=== PATIENT | female | born 1980 | race Caucasian/White ===

== ENCOUNTER 2021-03-08 10:08 | Emergency (ER) | payer BC, OTHER ==
[~2021-03-08] VITALS: Ht 172.7 cm; Wt 96.3 kg
[2021-03-08 10:31] VITALS: BP 111/71
--- NOTE | 2021-03-08 10:37 | NUR ---
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
[2021-03-08 11:04] LABS: BASOPHILS % (AUTO) 1 % (0-1); EOSINOPHILS % (AUTO) 1 % (1-7); LYMPHOCYTES % (AUTO) 21 % (22-44); MEAN CORPUSCULAR HEMOGLOBIN 21.6 pg (27.0-34.8); MEAN CORPUSCULAR HGB CONC 31.4 g/dL (32.4-35.8); MEAN PLATELET VOLUME 10.6 fL (7.4-10.4); MONOCYTES % (AUTO) 11 % (2-9); NEUTROPHILS % (AUTO) 66 % (42-75); PLATELET COUNT 230 x10^3/uL (130-400); RED CELL DISTRIBUTION WIDTH 16.1 % (9.6-15.2)
[2021-03-08 11:16] LABS: ALANINE AMINOTRANSFERASE 17 U/L (12-78); ALBUMIN 3.6 g/dL (3.4-5.0); ANION GAP 7 mmol/L (5-15); CALCIUM 8.9 mg/dL (8.5-10.1); CHLORIDE 107 mmol/L (98-107)
[2021-03-08 11:21] LABS: ALKALINE PHOSPHATASE 98 U/L (45-117); BILIRUBIN,TOTAL 0.4 mg/dL (0.2-1.0); CREATININE 0.81 mg/dL (0.55-1.02); TOTAL PROTEIN 7.4 g/dL (6.4-8.2)
[2021-03-08 11:30] LABS: ANISOCYTOSIS 1+; HYPOCHROMIA 1+; OVALOCYTES 1+; POLYCHROMASIA 1+
[2021-03-08 11:31] LABS: <PLATELET ESTIMATE> ADEQUATE; LARGE PLATELETS 1+; MICROCYTOSIS 1+
--- NOTE | 2021-03-08 11:53 | NUR ---
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
[2021-03-08 12:34] LABS: MICROSCOPIC INDICATED
--- NOTE | 2021-03-08 13:28 | NUR ---
Break RN note: Pt to CT via gurney at this time.
== END 2021-03-08 15:04 | disposition home or self-care (01) ==
LOC: ED 13:00
DX: M54.6 Pain in thoracic spine (principal); R11.2 Nausea with vomiting, unspecified; R10.31 Right lower quadrant pain
CPT/HCPCS: 36415; 74176; 80053; 81001; 84703; 85025; 87086; 99284